=== PATIENT | male | born 1995 | race African-American/Black ===

== ENCOUNTER 2024-12-30 05:02 | Emergency (ER) | payer SELFPAY ==
[2024-12-30 05:04] VITALS: BP 169/96; PULSE 82; RESP 16; TEMP 36.9; O2SAT 100; BMI 31.7
--- NOTE | 2024-12-30 05:09 | ED.MALEGU ---
HPI - Male Genitourinary General Chief complaint: Urogenital-Male Stated complaint: STD Concern Time Seen by Provider: 12/30/24 05:05 Source: patient, RN notes reviewed and old records reviewed Mode of arrival: Ambulatory Limitations: no limitations History of Present Illness HPI Narrative: 29-year-old male presents with a concern for STI. Patient was having sexual activity in the last 24 hours with a another individual when the condom broke. Patient is not in contact with the this other individual normally. He has had STI testing in the past which was negative. Does not have any symptoms currently. Related Data Allergies Allergy/AdvReac Type Severity Reaction Status Date / Time No Known Drug Allergies Allergy Verified 12/30/24 05:04 Review of Systems Review of Systems ROS Unobtainable: All systems reviewed & are unremarkable except as noted in HPI and below Patient History Social History Smoking Status: Former smoker Smoking Status: Former smoker Exam Narrative Exam Narrative: GENERAL: Alert and oriented x three, male in mild distress HEENT: Head normocephalic, atraumatic, EOMI, pupils reactive, face symmetric, moist mucous membranes NECK: Supple, full range of motion CARDIOVASCULAR: Regular rate and rhythm without murmurs, rubs or gallops. RESPIRATORY: Breath sounds equal bilaterally, no wheezes rales or rhonchi. ABDOMEN: Soft, nontender. Normoactive bowel sounds all 4 quadrants. No guarding or rebound, rigidity, no mass : No CVA tenderness EXTREMITIES: Normal range of motion, no clubbing or edema. Neurovascularly intact NEUROLOGICAL: Cranial nerves II through XII grossly intact. Moving all extremities SKIN: Warm, dry, no petechiae, no rashes or lesions. Initial Vital Signs Initial Vital Signs: Vital Signs Temperature 98.4 F 12/30/24 05:04 Pulse Rate 82 12/30/24 05:04 Respiratory Rate 16 12/30/24 05:04 Blood Pressure 169/96 H 12/30/24 05:04 Pulse Oximetry 100 12/30/24 05:04 Oxygen Delivery Method Room Air 12/30/24 05:04 Course Vital Signs Vital signs: Vital Signs - 8 hr 12/30/24 05:04 Temperature 98.4 F Pulse Rate 82 Respiratory Rate 16 Blood Pressure 169/96 H Pulse Oximetry 100 Oxygen Delivery Method Room Air MDM - Male Genitourinary MDM Narrative Medical decision making narrative: 29 year old male presents with concern for STI after condom broke during sexual activity in last 24 hours. Discussed obtaining baseline labs. Patient elects to follow up with PCM rather than obtain sample and await results at this time. Did offer testing. Discharge Plan Departure Patient Disposition: Home Clinical Impression: Concern about STI in male without diagnosis Instructions: Facts About Sexually Transmitted Infections Activity Restrictions/Additional Instructions: You can follow up with primary care for testing for sexually transmitted diseases. Call to set up an appointment. Please return if you develop any symptoms or have any other new concerns. Stand Alone Forms: Patient Portal/API
== END 2024-12-30 05:14 | disposition home or self-care (01) ==
PROVIDERS: Emergency Provider Emergency Medicine
DX: Z11.3 Encounter for screening for infections with a predominantly sexual mode of transmission (principal)
CPT/HCPCS: 99281